=== PATIENT | male | born 1955 | race Caucasian/White ===

== ENCOUNTER 2025-03-01 06:44 | Outpatient (CLI) | payer MEDICARE, SELFPAY ==
--- NOTE | 2025-03-01 06:52 | USCV_ITS ---
Jacques An Age: 69 Gender: M : 1955 Exam Date: 03/01/2025 07:03 Ordering Phys: Ramiro Zabala DO Technologist: Exam Location: [facility] [place] Indication: cp sob BP: 120 / 70 HR: 60 Rhythm: Sinus Technical Quality: Adequate MEASUREMENTS (Male / Female) Normal Values 2D ECHO LV Diastolic Diameter PLAX 5.0 cm 4.2 - 5.9 / 3.9 - 5.3 cm IVS Diastolic Thickness 1.6 cm 0.6 - 1.0 / 0.6 - 0.9 cm IVS Systolic Thickness 2.0 cm LVPW Diastolic Thickness 1.4 cm 0.6 - 1.0 / 0.6 - 0.9 cm LVPW Systolic Thickness 2.3 cm LVOT Diameter 2.1 cm LV Ejection Fraction 2D Teich 60.3 % LV Ejection Fraction MOD 4C 59.6 % LV Ejection Fraction MOD 2C 69.2 % LV Ejection Fraction 2C AL 69.9 % LA Diameter 4.2 cm RA Systolic Volume 4C AL 49.4 ml RA Systolic Volume 4C MOD 50.4 ml Aorta at Sinotubular Diameter 3.2 cm IVC Diameter 2.0 cm M-MODE LA Ao Ratio MM 1.2 AV Cusp Separation MM 2.5 cm DOPPLER AV Peak Velocity 147.0 cm/s LVOT Peak Velocity 94.0 cm/s AV Area Cont Eq vti 2.4 cm squared AV Area Cont Eq pk 2.2 cm squared MV Area PHT 3.3 cm squared Mitral E to A Ratio 1.8 TV Peak Velocity 190.0 cm/s TR Peak Velocity 249.0 cm/s TR Peak Gradient 24.8 mmHg TV Peak E Velocity 113.0 cm/s PV Peak Velocity 107.0 cm/s FINDINGS Left Ventricle Normal left ventricular size, systolic function and wall thickness, with no regional wall motion abnormalities. Left ventricular ejection fraction is estimated at 60%. Grade III/IV diastolic dysfunction (restrictive filling pattern), severely elevated filling pressures. Right Ventricle The right ventricle is normal in size and function. Right Atrium The right atrium is normal in size. Left Atrium Moderately increased left atrial size. Mitral Valve Structurally normal mitral valve. Mild mitral valve regurgitation. Aortic Valve Structurally normal aortic valve without significant sclerosis or stenosis. There is no aortic regurgitation. Tricuspid Valve Mild tricuspid valve regurgitation. Pulmonic Valve Structurally normal pulmonic valve without significant stenosis. There is no pulmonic regurgitation. Pericardium Normal pericardium without effusion. Aorta Normal ascending aorta dimension. IVC The inferior vena cava appears normal. CONCLUSIONS Normal left ventricular size, systolic function and wall thickness, with no regional wall motion abnormalities. Left ventricular ejection fraction is estimated at 60%. Grade III/IV diastolic dysfunction (restrictive filling pattern), severely elevated filling pressures. Structurally normal mitral valve. Mild mitral valve regurgitation. Mild tricuspid valve regurgitation. There is no pericardial effusion. Right atrial pressure is around 5 mm of mercury. Christos Fernandez MD (Electronically Signed) Final Date: 02 March 2025 13:16 S
== END 2025-03-01 06:45 | disposition home or self-care (01) ==
LOC: RAD 06:47
PROVIDERS: PCP Electrodiagnostic Medicine; Visit Provider Electrodiagnostic Medicine
DX: R60.1 Generalized edema (principal); I50.32 Chronic diastolic (congestive) heart failure; I08.1 Rheumatic disorders of both mitral and tricuspid valves
CPT/HCPCS: 93306